=== PATIENT | male | born 1990 | race African-American/Black ===

== ENCOUNTER 2023-06-14 12:48 | Outpatient (CLI) | payer OTHER ==
--- NOTE | 2023-06-15 10:17 | MRI Report ---
PROCEDURE: Knee RT WO INDICATIONS: KNEE PAIN TECHNIQUE: Noncontrast sagittal PD fast spin echo and T2 fast spin echo with fat saturation, sagittal 3-D gradie nt sequence with fat saturation; coronal T1 spin echo and PD fast spin echo with fat saturation, and axial PD fast spin echo with fat saturation through the knee. COMPARISON: X-ray right knee, 09/10/2015. FINDINGS: Image quality: Excellent. Menisci: The medial and lateral menisci demonstrate normal morphology and internal signal. The meni scal root ligaments appear intact. Cruciate ligaments: The anterior and posterior cruciate ligaments appear intact. Medial structures: The medial collateral ligament appears intact. The semimembranosus tendon insert ions and and meniscocapsular junction appear intact. Visualized portions of the pes anserinus tendon s appear normal. No abnormal bursal fluid. Lateral structures: The lateral collateral ligament, long and short heads of the biceps femoris tend on appear intact. The popliteus tendon appears normal. Iliotibial band appears normal. Anterior structures: The quadriceps and patellar tendons appear intact. This mild patellar tendinosi s of the proximal patellar tendon. Patellar alignment is normal. No femoral trochlear dysplasia or v entral trochlear prominence. No edema in the infrapatellar fat pad. Bones and cartilage: No bone marrow contusions or fractures. There is a full-thickness cartilage def ect in the lateral femoral condyle measuring 1.6 cm AP and 0.6 cm transverse. Joint space: There is small knee joint effusion. No Etienne's cyst. Normal appearing synovial plicae are incidentally noted. IMPRESSION: 1. There is a 1.6 x 0.6 cm full-thickness cartilage defect in the lateral femoral condyle. 2. Mild patellar tendinosis. 3. Small knee joint effusion. Reviewed by: Rajat Kimbrough MD on 06/15/2023 10:15 AM PST Approved by: Rajat Kimbrough MD on 06/15/2023 10:15 AM PST Station ID: [id number]
--- NOTE | 2023-06-15 10:27 | MRI Report ---
PROCEDURE: Knee LT WO INDICATIONS: KNEE PAIN TECHNIQUE: Noncontrast sagittal PD fast spin echo and T2 fast spin echo with fat saturation, sagittal 3-D gradie nt sequence with fat saturation; coronal T1 spin echo and PD fast spin echo with fat saturation, and axial PD fast spin echo with fat saturation through the knee. COMPARISON: None. FINDINGS: Image quality: Excellent. Menisci: There is lateral meniscal extrusion. There is degenerative tear involving the free edge of the body of the lateral meniscus. The medial and lateral menisci demonstrate normal morphology and in ternal signal. The meniscal root ligaments appear intact. Cruciate ligaments: The anterior and posterior cruciate ligaments appear intact. Medial structures: The medial collateral ligament appears intact. The semimembranosus tendon insert ions and meniscocapsular junction appear intact. Visualized portions of the pes anserinus tendons ap pear normal. No abnormal bursal fluid. Lateral structures: The lateral collateral ligament, long and short heads of the biceps femoris tend on appear intact. The popliteus tendon appears normal. Iliotibial band appears normal. Anterior structures: The quadriceps and patellar tendons appear intact. Patellar alignment is ashley l. There is mild patellar tendinitis of the distal patellar tendon near the tibial tubercle insertion . No femoral trochlear dysplasia or ventral trochlear prominence. There is edema in the superolatera l aspect of the infrapatellar fat pad, suggesting patellar tendon lateral femoral condyle friction sy ndrome. There is nonspecific prepatellar soft tissue swelling. Bones and cartilage: No bone marrow contusions or fractures. There is a cartilage fibrillation in th e lateral and medial femorotibial compartments with preserved thickness. Joint space: There is small knee joint effusion. No Etienne's cyst. Normal appearing synovial plicae are incidentally noted. IMPRESSION: 1. Edema in the superior lateral aspect of the infrapatellar fat pad suggesting patellar tendon later al femoral condyle friction syndrome. 2. Lateral meniscal extrusion and degenerative tear of the free edge of the body of the lateral menis cus. 3. Mild patellar tendinitis. 4. Small knee joint effusion. Reviewed by: Rajat Kimbrough MD on 06/15/2023 10:26 AM PST Approved by: Rajat Kimbrough MD on 06/15/2023 10:26 AM PST Station ID: [id number]
== END 2023-06-14 12:49 | disposition home or self-care (01) ==
LOC: DI 12:48
DX: M23.91 Unspecified internal derangement of right knee (principal); M67.863 Other specified disorders of tendon, right knee; M25.461 Effusion, right knee; S83.282A Other tear of lateral meniscus, current injury, left knee, initial encounter; M76.52 Patellar tendinitis, left knee; M25.462 Effusion, left knee; R93.6 Abnormal findings on diagnostic imaging of limbs; R93.89 Abnormal findings on diagnostic imaging of other specified body structures

== ENCOUNTER 2023-07-10 21:35 | Outpatient (CLI) | payer OTHER | END 2023-07-10 21:36 | disposition short-term general hospital (02) | LOC: EMS 21:35 | DX: I46.9 Cardiac arrest, cause unspecified (principal) | CPT/HCPCS: A0425; A0433 ==

== ENCOUNTER 2023-07-28 08:00 | Outpatient (CLI) | payer OTHER | END 2023-07-28 23:59 | disposition home or self-care (01) | LOC: PC 08:00 | PROVIDERS: ATTEND Nurse Practitioner Gerontology | DX: Z51.5 Encounter for palliative care (principal); D86.89 Sarcoidosis of other sites; D86.85 Sarcoid myocarditis; Z86.74 Personal history of sudden cardiac arrest; Z95.810 Presence of automatic (implantable) cardiac defibrillator; M96.A3 Multiple fractures of ribs associated with chest compression and cardiopulmonary resuscitation; G89.21 Chronic pain due to trauma; Z71.89 Other specified counseling | CPT/HCPCS: 99345 ==